=== PATIENT | female | born 1985 | race Caucasian/White ===

== ENCOUNTER 2024-02-12 12:32 | Emergency (ER) | payer OTHER, SELFPAY ==
--- NOTE | ~2024-02-12 | XR_ITS ---
EXAMINATION: XR chest 2V DATE: 02/12/2024 13:27 INDICATION: Chest pain and pressure TECHNIQUE: PA and lateral views of the chest were obtained. COMPARISON: None FINDINGS: The lungs are clear with no focal airspace opacities, pulmonary edema, pleural effusion or pneumothor ax. The cardiomediastinal silhouette is normal. Visualized bones and soft tissues are unremarkable. IMPRESSION: 1. Normal chest radiograph. Reviewed, dictated and finalized at location A. IMPRESSION: 1. Normal chest radiograph.
--- NOTE | 2024-02-12 12:37 | ECG_ITS ---
Test Date: 2024-02-12 12:44:28 Measurements Intervals [place] Rate: 71 P: 73 [place]: 129 QRS: 65 QRSD: 72 T: 64 QT: 358 QTc: 390 Interpretive Statements SINUS RHYTHM WITH SINUS ARRHYTHMIA RSR' IN V1 OR V2, PROBABLY NORMAL VARIANT MINIMAL Q WAVES- ANTEROLATERAL LEADS BASELINE ARTIFACT- I, II, AVR, AVL, AVF, V1 BORDERLINE ECG No previous ECG available for comparison Electronically Signed On 02-12-2024 12:59:51 CDT by Jared Lundberg D.O.
[2024-02-12 12:45] VITALS: BP 136/78; PULSE 67; RESP 18; TEMP 36.5; O2SAT 100
--- NOTE | 2024-02-12 12:45 | ED.CHESTPAIN ---
HPI - Chest Pain General Chief Complaint: Chest Pain <Daisy Winter PA-C - Last Filed: 02/12/24 12:50> Stated Complaint: chest heaviness, tingling fingers, lightheaded <Daisy Winter PA-C - Last Filed: 02/12/24 12:50> Time Seen by Provider: 02/12/24 12:45 <Daisy Winter PA-C - Last Filed: 02/12/24 12:50> Focused HPI: Patient is a 39 y/o female who presents to the ED with c/o CP. Patient reports she has had intermittent CP over the last few days. Initially had brief episode of pain 1 month ago, intermittent pain over the weekend. Pain recurred today which prompted her to come to the ED. Describes the pain as a heaviness. She does report hx of self-diagnosed anxiety and has been having panic feelings when the sx's begin. Denies worsening of sx's with exertion. Also reports tingling in her extremities, mild SOB associated with the chest heaviness. Denies BLE swelling. Denies cough, fevers. Recent travel to [place] within the last 1 month. GENERAL: Well-appearing, well-nourished, and in no acute distress. HEAD: Normocephalic, atraumatic. CHEST: Clear to auscultation. ?No respiratory distress. HEART: Regular rate and rhythm.? NEURO: ?Alert and oriented x3. PSYCHIATRIC: Mildly anxious. Patient screened in triage and initial orders placed.? ?Additional care and disposition to be based upon?diagnostic testing and treatment. <Daisy Winter PA-C - Last Filed: 02/12/24 12:50> Source: patient <Daisy Winter PA-C - Last Filed: 02/12/24 12:50> Mode of arrival: ambulatory <Daisy Winter PA-C - Last Filed: 02/12/24 12:50> Limitations: no limitations <Daisy Winter PA-C - Last Filed: 02/12/24 12:50> History of Present Illness HPI narrative: Agree with above HPI <Sumit Garcia MD - Last Filed: 02/13/24 12:02> Related Data Allergies/Adverse Reactions: Allergies Allergy/AdvReac Type Severity Reaction Status Date / Time No Known Allergies Allergy Verified 02/12/24 16:33 <Daisy Winter PA-C - Last Filed: 02/12/24 12:50> Review of Systems Review of Systems: All systems reviewed & are unremarkable except as noted in HPI and below <Sumit Garcia MD - Last Filed: 02/13/24 12:02> Exam Narrative: APPEARANCE: Well appearing, no pain, no distress, well-nourished. HEAD: normocephalic, atraumatic. EYES: PERRLA/EOMI, conjunctivae clear. NOSE: Normal no drainage EARS:TMS clear with good light reflex. THROAT: Pharynx clear, no exudate. NECK: Supple. No adenopathy, no masses. RESPIRATORY: Airway patent, respirations nonlabored. Clear to auscultation bilaterally, no rales, rhonchi, wheezing. CARDIOVASCULAR: Regular rate and rhythm without murmurs rubs or gallops. ABDOMINAL: Soft, nontender, nondistended, normal bowel sounds MUSCULOSKELETAL: Moves all extremities. Strength/ROM intact, No edema, No calf tenderness. NEURO: Alert. Cranial nerves II through XII intact. Good gait. Good coordination SKIN: Warm, dry. Normal Color <Sumit Garcia MD - Last Filed: 02/13/24 12:02> Course Vital Signs Vital signs: Vital Signs Temperature 97.7 F 02/12/24 12:45 Pulse Rate 67 02/12/24 12:45 Respiratory Rate 18 02/12/24 12:45 Blood Pressure 136/78 02/12/24 12:45 Pulse Oximetry 100 02/12/24 12:45 Temperature 98.3 F 02/12/24 17:41 Pulse Rate 74 02/12/24 17:50 Respiratory Rate 18 02/12/24 17:50 Blood Pressure 117/77 02/12/24 17:50 Pulse Oximetry 97 02/12/24 17:50 Oxygen Delivery Room Air 02/12/24 16:45 <Daisy Winter PA-C - Last Filed: 02/12/24 12:50> Vital Signs Temperature 97.7 F 02/12/24 12:45 Pulse Rate 67 02/12/24 12:45 Respiratory Rate 18 02/12/24 12:45 Blood Pressure 136/78 02/12/24 12:45 Pulse Oximetry 100 02/12/24 12:45 Temperature 98.3 F 02/12/24 17:41 Pulse Rate 74 02/12/24 17:50 Respiratory Rate 18 02/12/24 17:50 Blood
[2024-02-12 13:04] LABS: Basophils Absolute Auto 0.1 K/mm3 (0.0-0.1); Basophils Percent Auto 0.9 % (0.2-1.2); Eosinophils Percent Auto 0.6 % (0-4.4); Hematocrit 40.4 % (37.0-47.0); Hemoglobin 14.3 g/dL (12.0-15.0); Immature Granulocyte Absolute 0.03 K/mm3 (0.00-0.031); Immature Granulocyte Percent A 0.5 % (0-0.5); Lymphocytes Absolute Auto 1.71 K/mm3 (0.9-3.2); Lymphocytes Percent Auto 26.1 % (18.3-44.2); Mean Corpuscular HGB Conc 35.4 g/dl (32-36); Mean Corpuscular Hemoglobin 33.9 pg (26-34); Mean Corpuscular Volume 95.7 fl (80-100); Mean Platelet Volume 8.8 fl (7.4-10.4); Monocytes Absolute Auto 0.6 K/mm3 (0.1-0.6); Monocytes Percent Auto 9.6 % (2.6-8.5); Neutrophils Absolute Auto 4.1 K/mm3 (1.3-6.7); Neutrophils Percent Auto 62.3 % (45.5-73.1); Platelet Count Result 362 k/mm3 (150-375); Red Blood Count 4.22 M/mm3 (4.2-5.4); Red Cell Distribution Width 11.9 % (11.5-14.5); White Blood Count 6.6 K/mm3 (4.5-10.0)
[2024-02-12 13:21] LABS: INR 0.9; Prothrombin Time 12.9 Seconds (11.1-14.7)
[2024-02-12 13:22] LABS: Partial Thromboplastin Time 27.9 Seconds (22.3-36.8)
[2024-02-12 13:24] LABS: D Dimer 0.34 ug/mL (<0.48)
[2024-02-12 14:50] LABS: Alanine Aminotransferase 17 U/L (6-35); Albumin Level 4.7 g/dL (3.5-5.1); Alkaline Phosphatase 56 U/L (38-126); Anion Gap 9 mmol/L (4-12); Aspartate Amino Transferase 24 U/L (14-36); Bilirubin,Total 0.5 mg/dL (0.2-1.3); Blood Urea Nitrogen 11 mg/dL (7-17); Calcium 9.9 mg/dL (8.4-10.2); Carbon Dioxide 25 mmol/L (22-30); Chloride 104 mmol/L (98-107); Estimated CRCL calculation 76 ml/min; Estimated Glomerular Filt Rate > 60; Glucose 102 mg/dL (65-110); Lipase 115 U/L (23-300); Potassium 3.9 mmol/L (3.4-5.0); Sodium 138 mmol/L (137-145)
[2024-02-12 15:02] LABS: Troponin I < 0.012 ng/mL (0.000-0.034)
--- NOTE | 2024-02-12 16:10 | ECG_ITS ---
Test Date: 2024-02-12 16:22:40 Measurements Intervals [place] Rate: 70 P: 73 [place]: 124 QRS: 65 QRSD: 77 T: 64 QT: 366 QTc: 395 Interpretive Statements SINUS RHYTHM WITH SINUS ARRHYTHMIA RSR' IN V1 OR V2, PROBABLY NORMAL VARIANT MINIMAL Q WAVES- ANTEROLATERAL LEADS BASELINE ARTIFACT- I, II, III, AVR, AVL, V1 BORDERLINE ECG Compared to ECG 02/12/2024 12:44:28 No significant changes Electronically Signed On 02-12-2024 16:35:14 CDT by Jared Lundberg D.O.
[2024-02-12] MEDS: ASPIRIN 81 MG CHEWABLE TABLET 324 MG PO (16:41)
[2024-02-12] MEDS: LORazepam (*CRX) 1 MG TABLET PO (16:42)
[2024-02-12 16:57] LABS: Troponin I < 0.012 ng/mL (0.000-0.034)
[2024-02-12 17:41] VITALS: BP 117/77; PULSE 63; RESP 18; TEMP 36.8; O2SAT 97
[2024-02-12 17:50] VITALS: BP 117/77; PULSE 74; RESP 18; O2SAT 97
== END 2024-02-12 17:51 | disposition home or self-care (01) ==
LOC: ANHED 17:35
PROVIDERS: Emergency Provider Emergency Medicine
DX: R07.89 Other chest pain (principal); F41.9 Anxiety disorder, unspecified
CPT/HCPCS: 36415; 71046; 80053; 83690; 84484; 85025; 85380; 85610; 85730; 93005; 99284; A9270